=== PATIENT | female | born 1950 | race Caucasian/White ===

== ENCOUNTER → 2020-08-12 | Outpatient (CLI) | payer OTHER ==
[~2020-08-12] MED LIST: AMLODIPINE BESY10 MG PO; ATORVASTATIN CA10 MG PO; CITRACAL-D3 MA1 EACH PO; CO-ENZYME Q-1010 MG PO; GLUCOPHAGE1000 MG PO; MULTI VITAMIN1 EACH PO; TELMISARTAN20 MG PO; TERBINAFINE HC250 MG PO; VITAMIN C500 M1 PO; VITAMIN D3250 MC2 PO
== END ==
LOC: LAB 13:53
PROVIDERS: ATTEND Ophthalmology
DX: Z01.812 Encounter for preprocedural laboratory examination (principal); Z20.822 Contact with and (suspected) exposure to COVID-19

== ENCOUNTER 2020-08-15 06:29 | Day surgery (SDC) | payer OTHER ==
[~2020-08-15] VITALS: Ht 170.2 cm; Wt 95.3 kg
--- NOTE | ~2020-08-15 | O ---
[facility] [place] [address] OPERATIVE REPORT Name: RONAN CARL Room #: 150-9 [facility]#: [id number] Admission: 08/15/20 Attend Phys: Paul Mondragon MD Discharge: Date of : 52 Report #: [id number] THIS REPORT FOR: cc: Fernando Shaikh Herbert E. DO White, William L. MD ~ DATE OF SERVICE: 08/15/2020 SURGEON: Paul Mondragon MD CONTENT EDITOR: None. PREOPERATIVE DIAGNOSIS: Bilateral lower lid ectropion. POSTOPERATIVE DIAGNOSIS: Bilateral lower lid ectropion. OPERATION PERFORMED: Bilateral lower lid ectropion repair. ANESTHESIA: Local with IV sedation. COMPLICATIONS: None. INDICATIONS FOR PROCEDURE: This patient has bilateral acquired lower lid ectropion with chronic tearing, keratopathy and discharge. The current procedures are undertaken in order to improve the patient's visual function, lacrimal outflow, and level of comfort. Informed consent was obtained to include but not limit to the risk of loss of vision, bleeding, infection, scarring, failure to improve the problem and need for further surgery. DESCRIPTION OF OPERATION: The patient was taken to the operating room where 2% Xylocaine with epinephrine mixed with equal parts of 0.75% Marcaine with Wydase was administered transcutaneously and transconjunctivally to each lower lid and lateral canthal area. The patient was then prepped and draped in the usual sterile fashion. A Hieu clamp was then used to clamp the left lateral canthus following which a sharp canthotomy and cantholysis were performed. The tarsal strip was prepared laterally, removing the lash bearing portion of the redundant lid margin and the redundant tarsal plate. Hemostasis was achieved with a monopolar cautery, as it was throughout the case. The tarsal strip was then secured to the internal portion of the lateral orbital tubercle with two interrupted 5-0 Prolene sutures. The lateral canthal angle was sharply reformed as the subcutaneous structures and the skin were closed with multiple interrupted 6-0 plain gut sutures. Attention was then turned to the right side where the same procedure was performed. The wounds were cleaned and dressed with ophthalmic antibiotic [facility] [address] [place] [address] OPERATIVE REPORT Name: RONAN CARL Room #: 150-9 [facility]#: [id number] Admission: 08/15/20 Attend Phys: Paul Mondragon MD Discharge: Date of : 52 Report #: [id number] ointment. The patient was then transported to the recovery area, having tolerated the procedure well with no anesthetic or operative complications being noted. By: [id number] [id number] Paul Mondragon MD /nt
[2020-08-15 07:33] VITALS: BP 143/73
== END 2020-08-15 11:10 | disposition home or self-care (01) ==
LOC: OR 06:29 → TBA 06:30 → OR 11:10
PROVIDERS: ATTEND Ophthalmology
DX: H02.105 Unspecified ectropion of left lower eyelid (principal); H02.102 Unspecified ectropion of right lower eyelid; I10 Essential (primary) hypertension; E78.5 Hyperlipidemia, unspecified; E11.9 Type 2 diabetes mellitus without complications; Z98.890 Other specified postprocedural states; Z79.899 Other long term (current) drug therapy; Z85.828 Personal history of other malignant neoplasm of skin; Z88.8 Allergy status to other drugs, medicaments and biological substances
CPT/HCPCS: 50010; 50101; 50386; 50398; 51636; 56527; 56531; 62110; 62850; 70005